=== PATIENT | female | born 1965 | race Caucasian/White ===

== ENCOUNTER → 2016-12-19 | Day surgery (SDC) | payer OTHER ==
[~2016-12-19] VITALS: Ht 157.5 cm; Wt 90.7 kg
[~2016-12-19] MED LIST: 0.9% Sodium Chloride 1,000 ML IV SCH; DIPH25CA6 PO; HYDR-4003 PO; LORA1TAB PO; OXYB5TAB PO; PHEN-777 PO; SULF1TAB7 PO; Sodium Chloride LOK Flush 10 mL Syringe IV PRN; fentaNYL-PF 50 mCg/mL 2 mL Inj IVPUSH PRN
[2016-12-19 13:56] VITALS: BP 144/96; PULSE 85; RESP 16; O2SAT 95
[2016-12-19 14:48] VITALS: BP 119/74; PULSE 84; RESP 17; O2SAT 96
[2016-12-19 15:04] VITALS: BP 126/73; PULSE 92; RESP 16; O2SAT 97
--- NOTE | 2016-12-19 15:06 | ENDO ---
[address] [address] ENDOSCOPY PROCEDURE PATIENT: IGNACIO ROWE : 1965 MR#: [id number] ADMIT: 12/19/2016 JOB ID: [id number] DATE OF SERVICE: 12/19/2016 TYPE OF OPERATION: Colonoscopy, biopsy. PREOPERATIVE DIAGNOSIS(ES): Abnormal computerized tomography scan. POSTOPERATIVE DIAGNOSIS(ES): 1. Mild sigmoid diverticulosis. 2. Two hemoclips placed at the cecum, status post biopsy due to small oozing of blood. 3. Small internal hemorrhoids. ANESTHESIA: Fentanyl 175 mcg, Versed 7 mg IV administered. COMPLICATIONS: None. BLOOD LOSS: Minimal. DESCRIPTION OF PROCEDURE: After risks and benefits explained to the patient informed consent was obtained. After anesthesia administered, a colonoscope was then inserted from rectum to cecum. Mucosa carefully examined. Prep of the patient was excellent. After procedure was done, the scope was withdrawn and the procedure terminated. Upon inspection of the anus, no masses, hemorrhoids, ulcers, fissures that were seen throughout the entire examination. There was mild sigmoid diverticulosis. There were no masses or ulcers or polyps that were seen. Biopsies taken in the cecum and descending colon due to abnormal CT scan. There was some oozing seen at the cecum which two hemoclips were placed at the biopsy site with good hemostasis. Retroflexion showed small internal hemorrhoids. IMPRESSION: 1. Small internal hemorrhoids. 2. Mild sigmoid diverticulosis. 3. Two hemoclips placed in the cecum due to oozing post biopsy site. RECOMMENDATIONS: Await pathology results. High-fiber diet. Follow up in GI clinic as needed.
--- NOTE | 2016-12-25 09:32 | PATH ---
SURGICAL PATHOLOGY Attending Physician:Saurabh Virgen MD CASE STATUS: Signed Out PATIENT NAME: IGNACIO ROWE PID: [id number] : 1965 DATE COLLECTED:12/19/2016 00:00 SPECIMEN: 1: Colon, Biopsy 2: Colon, Biopsy CLINICAL HISTORY: 1). CECAL BIOPSIES 2). DESCENDING COLON BIOPSIES FINAL DIAGNOSIS: 1.CECAL BIOPSIES: COLONIC MUCOSA WITH NO DIAGNOSTIC ALTERATIONS. Negative for inflammation, dysplasia and malignancy. 2.DESCENDING COLON BIOPSIES: COLONIC MUCOSA WITH NO DIAGNOSTIC ALTERATIONS. Negative for inflammation, dysplasia and malignancy. ICD10 R10.9 GROSS DESCRIPTION: Received are two formalin-filled containers, both labeled with the patient' s name: 1. Received in formalin, labeled with the patient' s name and "cecum biopsies", is one fragment of rick, soft tissue measuring 0.2 x 0.1 x 0.1 cm. The fragment is totally submitted in cassette 1A. 2. Received in formalin, labeled with the patient' s name and "descending colon biopsy", are two fragments of rick, soft tissue ranging in size from 0.1 x 0.1 x 0.1 cm to 0.2 x 0.1 x 0.1 cm. All fragments are totally submitted in cassette 2A. ([id number]) MICRO DESCRIPTION: See diagnosis. ICD-9 CODES: CPT CODES: 1: 04988 2: 56769 Electronically Signed Out Alice Pena MD [facility] [place] [address] Technical component performed at [facility], [facility] [address], [place], [address]
== END | disposition home or self-care (01) ==
LOC: END 00:26
PROVIDERS: ATTEND Internal Medicine Gastroenterology
DX: K57.30 Diverticulosis of large intestine without perforation or abscess without bleeding (principal); K64.8 Other hemorrhoids; R93.5 Abnormal findings on diagnostic imaging of other abdominal regions, including retroperitoneum; Z86.010 Personal history of colon polyps; Z80.0 Family history of malignant neoplasm of digestive organs; Z87.442 Personal history of urinary calculi
CPT/HCPCS: 45380; G0500; J2250; J3010; J7030